=== PATIENT | male | born 1960 | race Hispanic/Latino ===

== ENCOUNTER 2016-07-04 18:37 | Observation (INO) | payer OTHER ==
[~2016-07-04] VITALS: Ht 165.1 cm; Wt 83.9 kg
[~2016-07-04 18:37] MED LIST: CHILDREN'S ASPI81 M1 PO; FIORICET 50-301 EACH PO; MONTELUKAST SOD10 M1 PO; NASAL DECONGEST30 M1 NASB; TYLENOL EXTRA500 M2 PO; VITAMIN B12 1541 TAB PO; VITAMIN D1000 IU PO
--- NOTE | 2016-07-04 19:28 | ED CARDIAC/CP/PALPITATIONS ---
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 HX BRADYCARDIA, PACEMAKER. PT TO [facility] FOR EKG. Triage Nurses Notes Reviewed? 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 Patient does take an aspirin every day 81 mg which he took. Denies any fever chills back pain abdominal pain leg swelling hemoptysis cough States that prior to arrival his symptoms have improved however he still complaining of pain Patient does state that last week he had a similar episode which he presented to his game author Dr. Aguero 2 days later with unremarkable acute findings. Has not had a symptom until today Denies any smoking history or illicit drug use history (FLORESITA CHIU,KATIE) Reconcile Medications Aspirin (Children's Aspirin) 81 MG TAB.CHEW 1 TAB PO DAILY HEART/BLOOD ( Reported) Meclizine HCl 25 MG TABLET 1 TAB PO TID PRN DIZZY (Reported) Tamsulosin HCl 0.4 MG CAP.ER.24H 1 CAP PO DAILY PROSTATE (Reported) (LUZ MARINA BERGER,COURTNEY) Past History Travel History Traveled to [place] past 21 day No Medical History Any Pertinent Medical History? see below for history Cardiovascular: bradycardia PACEMAKER History of MRSA: No History of VRE: No History of CDIFF: No Surgical History Surgical History: non-contributory, pacemaker Psychosocial History Who do you live with Spouse Services at Home None What is your primary language Mongolian Tobacco Use: Never used Family History Hx Contributory? No (KATIE STRANGE) Review of Systems Review of Systems Constitutional: Reports: see HPI. EENTM: Reports: no symptoms. Respiratory: Reports: see HPI, short of breath. Cardiovascular: Reports: see HPI, chest pain. GI: Reports: no symptoms. Genitourinary: Reports: no symptoms. Musculoskeletal: Reports: no symptoms. Skin: Reports: no symptoms. Neurological/Psychological: Reports: no symptoms. Hematologic/Endocrine: Reports: no symptoms. Immunologic/Allergic: Reports: no symptoms. All Other Systems: Reviewed and Negative (KATIE STRANGE) Physical Exam Physical Exam General Appearance: no apparent distress, comfortable Cardiovascular: regular rate/rhythm Comments: HEENT: Normal EENT exam, extraocular motion intact, no nystagmus. Pupils equally round and reactive to light and accommodation. Nose is atraumatic. External auditory canal and Tympanic membranes clear. Pharynx normal. No swelling or edema. Neck: Supple, no lymphadenopathy, normal range of motion without pain or tenderness Back: Nontender, no CVA tenderness. Cardiovascular: Regular rate and rhythms no murmurs rubs or gallops, normal JVP Respiratory: Chest nontender. No respiratory distress.breath sounds clear to auscultation bilaterally Abdomen: Soft, nontender nondistended, no appreciable organomegaly. Normal bowel sounds. No ascites Extremity: No edema, no calf tenderness to palpation, normal and equal pulses. Neuro: Alert oriented x3, motor sensory normal, Skin: No appreciable rash on exposed skin, skin is warm and dry. Psych: Mood and affect is normal, memory and judgment is normal. Core Measures ACS in differential dx? No Severe Sepsis Present: No Septic Shock Present: No (KATIE STRANGE) Progress Differential Diagnosis: AMI, aortic dissection, atrial fibrillation, cholecystitis, CHF/pulm edema, costochondritis, hyperkalemia, hypovolemia, hyperthyroid, hyperventilation, intracranial hemorrhage, musculoskeletal pain, myocarditis, pancreatitis, pericarditis, pneumonia, pneumothorax, PSVT, pulmonary embolism, PUD/GERD, PVCs/PACs, respiratory failure, rib fracture, sepsis, unstable angina, V-fib/V-Tach, WPW syndrome Plan of Care: Orders Procedure Date/time Status Heart Healthy Diet 07/05 B Active TROPONIN LEVEL 07/05 0700 Active EKG 07/05 0700 Active TROPONIN LEVEL 07/05 0100 Active EKG 07/05 0100 Active RAPID VIRAL INFLUENZA A 07/04 225 Active ECHOCARDIOGRAM 07/04 2238 Active Pathway - chart 07/04 2236 Active Patient Data 07/04 2236 Active Code Status 07/04 2236 Active Patient Data 07/[address] in observation 07/04 2211 Active Telemetry/Concessionist 07/04 1941 Active THYROID STIMULATING HORMONE 07/04 194 Complete TROPONIN LEVEL 07/04 194 Complete MAGNESIUM 07/04 194 Complete FREE T4 07/04 194 Complete COMPREHENSIVE METABOLIC PANEL 07/04 194 Complete CBC WITHOUT DIFFERENTIAL 07/04 1941 Complete EKG 07/04 1850 Active House Staff 07/04 UNK Active VTE Mechanical Prophylaxis 07/04 UNK Active Vital Signs 07/04 UNK Active Telemetry/Concessionist 07/04 UNK Active Intake & Output 07/04 UNK Active Current Medications Sig/Leo Start time Last Medication Dose Stop Time Status Admin Aspirin 81 MG DAILY 07/05 1000 AC (Aspirin) Tamsulosin HCl 0.4 MG DAILY 07/05 1000 AC (Flomax) Heparin Sodium 5,000 UNIT Q8 07/05 0600 AC (Porcine) Acetaminophen 650 MG Q6P PRN 07/04 2245 AC (Tylenol) Acetaminophen/ 1 TAB Q6P PRN 07/04 2245 AC Hydrocodone Bitart (Vicodin) Meclizine HCl 25 MG TIDPRN PRN 07/04 2245 AC (Antivert) Oxycodone HCl 10 MG Q6P PRN 07/04 2245 AC (Roxicodone) Laboratory Tests 07/04/16 1950: Anion Gap 10, Estimated GFR > 60, BUN/Creatinine Ratio 23.3, Glucose 102 H, Calcium 9.1, Magnesium 1.9, Total Bilirubin 0.5, AST 20, ALT 32, Alkaline Phosphatase 53, Troponin I < 0.01, Total Protein 7.1, Albumin 4.2, Globulin 2.9, Albumin/Globulin Ratio 1.4, TSH 1.920, Free T4 1.02, CBC w Diff NO MAN DIFF REQ, RBC 5.38, MCV 82.1, MCH 27.6, RDW 14.0, MPV 10.8 H, Gran % 57.4, Lymphocytes % 32.0, Monocytes % 7.5, Eosinophils % 2.4, Basophils % 0.7, Absolute Granulocytes 5.1, Absolute Lymphocytes 2.8, Absolute Monocytes 0.7 H, Absolute Eosinophils 0.2, Absolute Basophils 0.1, PUBS MCHC 33.7 Microbiology 07/04 2316 NASOPHARYN: Influenza Virus A & B Rapid Smear - RECD Patient on this examination had concerns of angina in which he was administered a therapeutic dose of aspirin and was given nitroglycerin. After nitroglycerin was administered patient had complete resolution of his chest pain. Discussed patient with DR. RAZA who admit patient to telemetry Dr. Linda was paged for admission (FLORESITA CHIU,KATIE) D/W DR LINDA, WILL PLACE ON TELEMETRY FOR OBSERVATION. (LUZ MARINA BERGER,COURTNEY) Diagnostic Imaging: Viewed by Me: Radiology Read. CXR Impression: SEE COMMENTS Initial ED EKG: ATRIAL PACED RHYTHM NOTED AT 63 BPM Comments: PATIENT: DON BOYD PRESENT AGE: 55 PATIENT ACCOUNT NO: [id number] : 61 LOCATION: [facility] ORDERING PHYSICIAN: KATIE CHIU SERVICE DATE: 07/04/16 EXAM TYPE: RAD - XRY-CHEST XRAY, PA AND LATERAL EXAMINATION: XR CHEST CLINICAL INFORMATION: Chest pain. COMPARISON: Chest radiography 08/18/2014. TECHNIQUE: Two views of the chest were obtained. FINDINGS: Left pectoral cardiac device with leads terminating in the right atrium and right ventricle. The lungs are well expanded. There is mild bronchovascular prominence. No lobar consolidation, pleural effusion, pulmonary edema, or pneumothorax. No mediastinal widening. No acute osseous abnormalities. Abdominal surgical clips. IMPRESSION: Mild bronchovascular prominence; please correlate for clinical symptoms of small airways inflammation. No evidence of lobar pneumonia or overt pulmonary edema. (KATIE STRANGE) Departure Departure Disposition: STILL A PATIENT Condition: Guarded Clinical Impression Primary Impression: Angina effort Referrals: WILDA BERGER,GUZMAN Chatterjee (PCP/Family) Departure Forms: Customer Survey General Discharge Information (KATIE STRANGE) Observation Note Spoke With: CAILIN BERGER,IRENE Solorzano Physician Advisor Notified: OLE LOPEZ DO Place Patient In: Non-ED OBS Care Area Rationale for Observation: My rational for observation is as follows [TELE MONITOR, SERIAL EKG, SERIAL TROPONIN, CARDIOLOGY EVALUATION, ECHOCARDIOGRAM, ASPIRIN, NITRATES]. PA/BUSINESS APPLICATIONS SPECIALIST Co-Sign Statement Statement: ED Attending supervision documentation- [X] I saw and evaluated the patient. I have also reviewed all the pertinent lab results and diagnostic results. I agree with the findings and the plan of care as documented in the PA's/BUSINESS APPLICATIONS SPECIALIST's documentation. [X] I have reviewed the ED Record and agree with the PA's/BUSINESS APPLICATIONS SPECIALIST's documentation. [] Additions or exceptions (if any) to the PAs/BUSINESS APPLICATIONS SPECIALIST's note and plan are summarized below: [] (LUZ MARINA BERGER,COURTNEY) Critical Care Note Critical Care Note Critical Care Time: 30-74 min (KATIE STRANGE)
[2016-07-04] MEDS ORDERED: TAMSULOSIN HCL0.4 M1 PO (19:31)
[2016-07-04] MEDS ORDERED: MECLIZINE HCL25 MG PO (19:31)
[2016-07-04] MEDS ORDERED: GABAPENTIN100 M2 PO (19:32)
[2016-07-04 19:58] LABS: BASOPHIL % 0.7 % (0.0-2.0); EOSINOPHIL % 2.4 % (0-5); HEMATOCRIT 44.2 % (42-52); MEAN CORPUSCULAR HGB 27.6 PG (27.0-31.0); MEAN CORPUSCULAR HGB CONC 33.7 G/DL (33.0-37.0); MEAN CORPUSCULAR VOLUME 82.1 FL (80.0-94.0); MEAN PLATELET VOLUME 10.8 FL (7.4-10.4); PLATELET COUNT 218 /CUMM (130-400); RED BLOOD CELL CT 5.38 /CUMM (4.70-6.10); WHITE BLOOD CELL COUNT 8.8 /CUMM (4.8-10.8)
[2016-07-04 20:01] LABS: ABSOLUTE BASOPHIL COUNT 0.1 /CUMM (0.0-0.2); ABSOLUTE EOSINOPHIL COUNT 0.2 /CUMM (0.0-0.7); ABSOLUTE GRANULOCYTE CT 5.1 /CUMM (1.4-6.5); ABSOLUTE LYMPH COUNT 2.8 /CUMM (1.2-3.4); ABSOLUTE MONOCYTE COUNT 0.7 /CUMM (0.10-0.60); GRANULOCYTE % 57.4 % (42.2-75.2)
--- NOTE | 2016-07-04 20:19 | RADIOLOGY REPORT ---
EXAMINATION: XR CHEST CLINICAL INFORMATION: Chest pain. COMPARISON: Chest radiography 08/18/2014. TECHNIQUE: Two views of the chest were obtained. FINDINGS: Left pectoral cardiac device with leads terminating in the right atrium and right ventricle. The lungs are well expanded. There is mild bronchovascular prominence. No lobar consolidation, pleural effusion, pulmonary edema, or pneumothorax. No mediastinal widening. No acute osseous abnormalities. Abdominal surgical clips. IMPRESSION: Mild bronchovascular prominence; please correlate for clinical symptoms of small airways inflammation. No evidence of lobar pneumonia or overt pulmonary edema.
--- NOTE | 2016-07-04 22:28 | History & Physical ---
JAYDEN BERGER,JESSE 07/04/16 2227: General Information and HPI MD Statement: I have seen and personally examined DON BOYD and documented this H&P. The patient is a 55 year old M who presented with a patient stated chief complaint of [chest pain]. Source of Information: patient, family, old records Exam Limitations: no limitations History of Present Illness: There is a 55-year-old gentleman with a past medical history significant for bradycardia status post pacemaker placement in 2013, dizziness, BPH that presented to the emergency room today with a chief complaint of substernal chest pain. Patient states that about a week ago he had substernal chest pain and had a few bouts of vomiting subsequently after which the chest pain alleviated. 2 days ago he was seen and evaluated by Dr. Womack in his office for his symptoms which were then deemed to be noncardiac. This evening he was climbing up the stairs to go to his bedroom where he noticed chest heaviness, substernal, nonradiating, 8 out of 10 pressure-like pain. He took an aspirin and presented to the emergency room. His chest pain in the emergency room did alleviate with nitroglycerin. Also merits the 1 bout of vomiting today. At present she is chest pain-free, denies any shortness of breath, nausea, vomiting, diarrhea, fevers, chills, recent illnesses or sick contacts. States that he was scheduled to have a stress test with Dr. Womack on July 22. Allergies/Medications Allergies: Coded Allergies: NO KNOWN ALLERGIES (03/25/14) Past History Travel History Traveled to [place] past 21 day No Medical History Cardiovascular: bradycardia PACEMAKER History of MRSA: No History of VRE: No History of CDIFF: No Surgical History Surgical History: non-contributory, pacemaker Past Family/Social History Psychosocial History Where do you live? Home Who Do You Live With? spouse, child Services at Home: None Primary Language: Algerian, Mohawk Smoking Status: Never Smoked ETOH Use: occasional use Illicit Drug Use: denies illicit drug use Functional Ability ADLs Independent: dressing, eating, toileting, bathing. IADLs Independent: shopping, housework, finances, food prep, telephone, transportation , medication admin. Review of Systems Review of Systems Constitutional: Reports: see HPI. Exam & Diagnostic Data Last 24 Hrs of Vital Signs/I&O Vital Signs Date Time Temp Pulse Resp B/P Pulse O2 O2 Flow FiO2 Ox Delivery Rate 07/04 2226 96.4 70 18 107/78 95 Room Air 07/04 2137 96.7 63 18 109/70 96 Room Air 07/04 1936 100 Room Air 07/04 1843 96.9 77 18 124/82 97 Room Air Physical Exam General Appearance Alert, Oriented X3, Cooperative HEENT Atraumatic, PERRLA, EOMI Neck Supple, No JVD Lymphatic Axillary nl, Cervical nl Cardiovascular Regular Rate, Normal S1, Normal S2, No Murmurs Lungs Clear to Auscultation, Normal Air Movement Abdomen Normal Bowel Sounds, Soft, No Tenderness, No Hepatospenomegaly Neurological Normal Gait, Normal Speech, Strength at 5/5 X4 Ext, Normal Tone, Sensation Intact, Cranial Nerves 3-12 NL, Reflexes 2+ Extremities No Clubbing, No Cyanosis, No Edema Last 24 Hrs of Labs/Reji: Laboratory Tests 07/04/16 1950: Anion Gap 10, Estimated GFR > 60, BUN/Creatinine Ratio 23.3, Glucose 102 H, Calcium 9.1, Magnesium 1.9, Total Bilirubin 0.5, AST 20, ALT 32, Alkaline Phosphatase 53, Troponin I < 0.01, Total Protein 7.1, Albumin 4.2, Globulin 2.9, Albumin/Globulin Ratio 1.4, TSH 1.920, Free T4 1.02, CBC w Diff NO MAN DIFF REQ, RBC 5.38, MCV 82.1, MCH 27.6, RDW 14.0, MPV 10.8 H, Gran % 57.4, Lymphocytes % 32.0, Monocytes % 7.5, Eosinophils % 2.4, Basophils % 0.7, Absolute Granulocytes 5.1, Absolute Lymphocytes 2.8, Absolute Monocytes 0.7 H, Absolute Eosinophils 0.2, Absolute Basophils 0.1, PUBS MCHC 33.7 Diagnostic Data EKG Results Rate 63, FL 184, QRS 92, QTC 377 Atrial paced No significant changes since previous tracing CXR Results IMPRESSION: Mild bronchovascular prominence; please correlate for clinical symptoms of small airways inflammation. No evidence of lobar pneumonia or overt pulmonary edema. Assessment/Plan Assessment: Assessment- 1. Angina on exertion, possibly cardiac 2. One episode of vomiting 3. History of dizziness 4. History of BPH Plan- Admit to telemetry Vitals per protocol Strict I's and O's Trend troponin and EKG Daily aspirin, nitroglycerin when necessary if blood pressure permits Echocardiogram Cardiology evaluation Continue all other home meds Heart healthy diet DVT prophylaxis with subcutaneous heparin Pain pathway Full code As Ranked By This Provider Problem List: 1. Angina effort 2. Lightheaded 3. Atypical chest pain 4. Dizziness 5. Vertigo 6. Headache 7. Chest pain Core Measures/Miscellaneous Acute Coronary Syndrome ACS Diagnosis: No Cerebrovascular Accident CVA/TIA Diagnosis: No Congestive Heart Failure CHF Diagnosis: No Venous Thromboembolism VTE Risk Factors: Age > 40 VTE Prophylaxis Ordered Inpt: Pharm- Heparin No Mech VTE prophylaxis d/t: No contraindications No VTE Pharm Prophylaxis d/t: No contraindications VTE Diagnosis: No VTE Type: NONE VTE Confirmed by (Test): NONE Severe Sepsis Severe Sepsis Present: No Septic Shock Septic Shock Present: No Miscellaneous Documentation Attending Case Discussed With: Dr. Linda Primary Care Physician: GUZMAN ASTUDILLO MD Patient sees these Specialists DRS. WOMACK AND JOSHUA Level of Patient Care: Telemetry Resident Review Statement Resident Statement: examined this patient, discussed with pr intern CAILIN BERGERTUSCALOOSA 07/05/16 1044: General Information and HPI Allergies/Medications Home Med list Aspirin (Children's Aspirin) 81 MG TAB.CHEW 1 TAB PO DAILY HEART/BLOOD ( Reported) Meclizine HCl 25 MG TABLET 1 TAB PO TID PRN DIZZY (Reported) Tamsulosin HCl 0.4 MG CAP.ER.24H 1 CAP PO DAILY PROSTATE (Reported) Attending MD Review Statement Attending Statement Attending MD Statement: examined this patient, discuss w/resident/PA/SALESPERSON SURGICAL APPLIANCES, agreed w/resident/PA/SALESPERSON SURGICAL APPLIANCES, discussed with family, discussed with nursing Attending Assessment/Plan: This is a 55-year-old male with a pacemaker for bradycardia. He has had cardiac catheterization with normal coronary arteries in 2009. He has had normal stress tests in the past. Yesterday he had an episode of dizziness and nausea and brief chest pain and was brought to the emergency department. He has been watched overnight. He has no further chest pain. He has no EKG changes. His enzymes are negative 3. The patient is stable for discharge at this time. He already has a stress test scheduled for about 2 weeks time. He will report any further symptoms to his regular physicians. No changes were made to his minimal medical regimen.
[2016-07-05] VITALS: BP 116/68
[2016-07-05 07:51] VITALS: BP 110/70
--- NOTE | 2016-07-05 08:52 | PN- Housestaff ---
Subjective Follow-up For: Chest pain Tele-Events Since Last Visit: Sinus Rhythm, first-degree heart block MO interval 0.2 to heart rate 60s Subjective: Seen and examined patient offers no complaints Review of Systems Constitutional: Denies: chills, diaphoresis, fever, malaise, weakness, unexplained weight loss. Cardiovascular: Denies: chest pain, edema, orthopena, palpitations, peripheral edema, syncope. Respiratory: Denies: cough, hemoptysis, orthopnea, short of breath, sputum production, stridor, wheezing. Gastrointestinal: Denies: abdominal pain, bloating, constipation, diarrhea, distention, bowel incontinence, melena, nausea, bloody stool, changes in stool, vomiting, steatorrhea. Objective Last 24 Hrs of Vital Signs/I&O Vital Signs Date Time Temp Pulse Resp B/P Pulse O2 O2 Flow FiO2 Ox Delivery Rate 07/05 0751 97.6 63 18 110/70 96 Room Air 07/05 0024 95 Room Air 07/05 0000 98.1 68 18 116/68 95 Room Air 07/04 2227 96.4 70 18 107/78 95 Room Air 07/04 2137 96.7 63 18 109/70 96 Room Air 07/04 1936 100 Room Air 07/04 1843 96.9 77 18 124/82 97 Room Air Intake & Output 07/05 1600 07/05 0800 07/05 0000 Intake Total 480 Output Total Balance 480 Intake, Oral 480 Patient 185 lb 185 lb Weight Physical Exam General Appearance: Alert, Oriented X3, Cooperative, No Acute Distress Cardiovascular: Regular Rate, Normal S1, Normal S2 Lungs: Clear to Auscultation, Normal Air Movement Extremities: No Edema Current Medications: Current Medications Sig/Leo Start time Last Medication Dose Route Stop Time Status Admin Acetaminophen 650 MG Q6P PRN 07/04 2244 AC PO Acetaminophen/ 1 TAB Q6P PRN 07/04 2244 AC Hydrocodone Bitart PO Aspirin 81 MG DAILY 07/05 1000 AC PO Aspirin 0 .STK-MED ONE 07/04 1950 DC PO Aspirin 81 MG ONCE ONE 07/04 1944 DC 07/04 PO 07/04 Aspirin 81 MG ONCE ONE 07/04 1944 DC 07/04 PO 07/04 Aspirin 81 MG ONCE ONE 07/04 1944 DC 07/04 PO 07/04 Heparin Sodium 5,000 UNIT Q8 07/05 0600 AC 07/05 (Porcine) SD 0627 Meclizine HCl 25 MG TIDPRN PRN 07/04 2244 AC PO Nitroglycerin 0.4 MG ONCE ONE 07/04 1944 DC 07/04 SL 07/04 Oxycodone HCl 10 MG Q6P PRN 07/04 224 AC PO Sodium Chloride 1,000 ML BOLUS ONE 07/04 1944 DC 07/04 IV 07/04 Tamsulosin HCl 0.4 MG DAILY 07/05 1000 AC PO Last 24 Hrs of Lab/Reji Results Last 24 Hrs of Labs/Mics: Laboratory Tests 07/05/16 0705: Troponin I < 0.01 07/05/16 0140: Troponin I < 0.01 07/04/16 1950: Anion Gap 10, Estimated GFR > 60, BUN/Creatinine Ratio 23.3, Glucose 102 H, Calcium 9.1, Magnesium 1.9, Total Bilirubin 0.5, AST 20, ALT 32, Alkaline Phosphatase 53, Troponin I < 0.01, Total Protein 7.1, Albumin 4.2, Globulin 2.9, Albumin/Globulin Ratio 1.4, TSH 1.920, Free T4 1.02, CBC w Diff NO MAN DIFF REQ, RBC 5.38, MCV 82.1, MCH 27.6, RDW 14.0, MPV 10.8 H, Gran % 57.4, Lymphocytes % 32.0, Monocytes % 7.5, Eosinophils % 2.4, Basophils % 0.7, Absolute Granulocytes 5.1, Absolute Lymphocytes 2.8, Absolute Monocytes 0.7 H, Absolute Eosinophils 0.2, Absolute Basophils 0.1, PUBS MCHC 33.7 Microbiology 07/047 NASOPHARYN: Influenza Virus A & B Rapid Smear - COMP Assessment/Plan Assessment: 55-year-old gentleman with a past medical history significant for bradycardia status post pacemaker placement in 2013, dizziness, BPH admitted to the hospital for evaluation of chest pain. His pain is now completely resolved. Troponin negative 3, no new EKG changes noted. Problem list: Atypical chest pain BPH Assessment: Was recently evaluated by Dr. Aguero in his office and is scheduled to have a stress test on July 22. Spoke Dr[address] Linda who stated that the patient was stable for discharge to home today Continue aspirin, meclizine and Flomax Heart healthy diet DVT prophylaxis with subcutaneous heparin Pain pathway Full code Problem List: 1. Chest pain Pain Ratin Pain Location: Not Applicable Pain Goal: Pain 4 or less Pain Plan: Current regimen Tomorrow's Labs & Rationales: None required
[2016-07-05 10:04] VITALS: BP 110/70
--- NOTE | 2016-07-05 10:35 | Patient Discharge Instructions ---
Discharge Instructions General Discharge Information You were seen/treated for: chest pain Special Instructions: Follow-up with your primary care physician within one week Please follow-up with your solution strategist for outpatient stress test Acute Coronary Syndrome Inclusion Criteria At DC or during hospital stay patient has or had the following: ACS DIAGNOSIS No Discharge Core Measures Meds if any: Prescribed or Continued at Discharge Meds if any: NOT Prescribed or Continued at Discharge Congestive Heart Failure Inclusion Criteria At DC or during hospital stay patient has or had the following: CHF DIAGNOSIS No Discharge Core Measures Meds if any: Prescribed or Continued at Discharge Meds if any: NOT Prescribed or Continued at Discharge Cerebrovascular accident Inclusion Criteria At DC or during hospital stay patient has or had the following: CVA/TIA Diagnosis No Discharge Core Measures Meds if any: Prescribed or Continued at Discharge Meds if any: NOT Prescribed or Continued at Discharge Venous thromboembolism Inclusion Criteria VTE Diagnosis No VTE Type NONE VTE Confirmed by (Test) NONE Discharge Core Measures - Per Current guidelines, there needs to be overlap - treatment for the first 5 days of Warfarin therapy. - If discharged on Warfarin prior to 5 days of - overlap therapy, the patient will need to be - assessed for post discharge needs including - *Post discharge parental anticoagulation - *Warfarin and/or parental anticoagulation education - *Follow up date to check INR post discharge At least 5 days overlap therapy as Inpatient No Meds if any: Prescribed or Continued at Discharge Note: Overlap Therapy is Warfarin and Anticoagulant Meds if any: NOT Prescribed or Continued at Discharge
== END 2016-07-05 11:55 ==
LOC: ENRESERVTM → ENRESERVDT → ERH 18:37 → ERHI 22:12 → ENPENDDIS 22:12 → 1NO 23:49
PROVIDERS: Physician Assistant; ADMIT Internal Medicine
DX: R07.9 Chest pain, unspecified (principal); Z95.0 Presence of cardiac pacemaker; N40.0 Benign prostatic hyperplasia without lower urinary tract symptoms; R42 Dizziness and giddiness
CPT/HCPCS: 2000; 6020; 87804; 87804-59; 93005; 93010; 96360; 96372; G0378; J1644; J3490

== ENCOUNTER 2016-11-12 16:32 | Emergency (ER) | payer OTHER ==
[~2016-11-12] VITALS: Ht 165.1 cm; Wt 81.6 kg
[~2016-11-12 16:32] MED LIST changes: +GABAPENTIN100 M2 PO; +MECLIZINE HCL25 MG PO; +TAMSULOSIN HCL0.4 M1 PO
[2016-11-12] MEDS ORDERED: OXYBUTYNIN CHLO10 M1 PO (17:46)
[2016-11-12] MEDS ORDERED: TIZANIDINE HCL2 M1 (17:48)
[2016-11-12 18:14] VITALS: BP 122/78
--- NOTE | 2016-11-12 18:22 | ED HAND/WRIST INJURY COMPLAINT ---
History of Present Illness General Chief Complaint: Hand or Wrist Injury Stated Complaint: PT SLICE HIS LT THUMB Source: patient, family Exam Limitations: no limitations Vital Signs & Intake/Output Vital Signs & Intake/Output Vital Signs Date Time Temp Pulse Resp B/P B/P Pulse O2 O2 Flow FiO2 Mean Ox Delivery Rate 11/12 1814 97.6 87 17 122/78 100 Room Air 11/12 1638 97.5 90 16 120/88 98 Room Air Allergies Coded Allergies: NO KNOWN ALLERGIES (03/25/14) Reconcile Medications Aspirin (Children's Aspirin) 81 MG TAB.CHEW 1 TAB PO DAILY HEART/BLOOD ( Reported) Cephalexin (Keflex) 500 MG CAPSULE 1 CAP PO TID skin wound Meclizine HCl 25 MG TABLET 1 TAB PO TID PRN DIZZY (Reported) Oxybutynin Chloride (Oxybutynin Chloride ER) 10 MG TAB.ER.24 1 TAB PO DAILY (Reported) Tizanidine HCl (Unknown Strength) TABLET (Unknown Dose) UNKNOWN (Reported) Triage Note: PT STATES HE WAS TRIMMING A PIECE OF MEAT AND THE KNIFE SLIPPED AND CUT HIS LEFT THUMB. BLEEDING CONTROLED. Triage Nurses Notes Reviewed? yes Occurred: just prior to arrival Duration: hour(s): Timing: single episode today Injury Environment: home Severity: moderate Pain/Injury Location: Left: 1st finger. Context: laceration Method of Injury: laceration HPI: 56-year-old male presents emergency department complaining of laceration to left thumb. Patient states that while cutting meat and slipped causing him to cut his left thumb. He states this happened immediately prior to his arrival here. He is unsure of his last tetanus shot. He denies numbness, tingling, joint swelling. (JUAN R GALLEGOS PA-C) Past History Travel History Traveled to [place] past 21 day No Medical History Any Pertinent Medical History? see below for history Neurological: NONE EENT: NONE Cardiovascular: bradycardia PACEMAKER Respiratory: NONE Gastrointestinal: NONE Hepatic: NONE Renal: NONE Musculoskeletal: NONE Psychiatric: NONE History of MRSA: No History of VRE: No History of CDIFF: No Influenza Vaccine: 04/16/16 Tetanus Vaccine: 11/12/16 Surgical History Surgical History: non-contributory, pacemaker Psychosocial History Who do you live with Spouse Services at Home None What is your primary language Greenlandic Tobacco Use: Never used ETOH Use: denies use Illicit Drug Use: denies illicit drug use Family History Hx Contributory? No (JUAN R GALLEGOS PA-C) Review of Systems Review of Systems Constitutional: Reports: no symptoms. EENTM: Reports: no symptoms. Respiratory: Reports: no symptoms. Cardiovascular: Reports: no symptoms. GI: Reports: no symptoms. Genitourinary: Reports: no symptoms. Musculoskeletal: Reports: no symptoms. Skin: Reports: see HPI. Neurological/Psychological: Reports: no symptoms. Hematologic/Endocrine: Reports: no symptoms. Immunologic/Allergic: Reports: no symptoms. All Other Systems: Reviewed and Negative (JUAN R GALLEGOS PA-C) Physical Exam Physical Exam General Appearance: well developed/nourished, no apparent distress, alert, awake Head: atraumatic, normal appearance Eyes: Bilateral: normal appearance. Ears, Nose, Throat: hearing grossly normal Neck: normal inspection, supple, full range of motion Cardiovascular/Respiratory: no respiratory distress Back: normal range of motion Hand Left: normal range of motion, 1st finger (2 cm laceration palmar aspect) Hand Right: normal inspection, normal range of motion Neurologic/Tendon: normal sensation, normal motor functions, normal tendon functions Skin: 2cm flap laceration to palmar aspect of left thumb without nail involvment (JUAN R GALLEGOS PA-C) Progress Differential Diagnosis: abscess, cellulitis, contusion, felon, fracture, sprain Plan of Care: Tetanus status updated today. Wound closed with 8 sutures and skin glue. Patient tolerated procedure well. Wound was extensively irrigated prior to closure, no foreign body was detected. Patient was put on prophylactic course of antibiotics. He was instructed on signs of infection. He will follow-up with his primary care doctor or return to the emergency department in 7-10 days for suture removal. He will return sooner with any signs of infections or any worsening or concerning symptoms. The patient is in agreement with the plan of care. (JUAN R GALLEGOS PA-C) Departure Departure Disposition: HOME OR SELF CARE Condition: Stable Clinical Impression Primary Impression: Laceration Referrals: WILDA BERGER,GUZMAN Chatterjee (PCP/Family) Additional Instructions: Keep dressing over the wound open to the air. You may wash with soap and water however no direct scrubbing over wound. Watch for signs of infection including redness, swelling, cloudy drainage, red streaking up the arm. Follow up here or with her primary care doctor in 7-10 days for removal of your stitches. You may take Tylenol or Motrin as prescribed as needed for ear pain. Departure Forms: Customer Survey General Discharge Information Prescriptions: Current Visit Scripts Cephalexin (Keflex) 1 CAP PO TID #21 CAP (JUAN R GALLEGOS PA-C) PA/LIBRARY MEDIA SPECIALIST Co-Sign Statement Statement: ED Attending supervision documentation- [] I saw and evaluated the patient. I have also reviewed all the pertinent lab results and diagnostic results. I agree with the findings and the plan of care as documented in the PA's/LIBRARY MEDIA SPECIALIST's documentation. [X] I have reviewed the ED Record and agree with the PA's/LIBRARY MEDIA SPECIALIST's documentation. [] Additions or exceptions (if any) to the PAs/LIBRARY MEDIA SPECIALIST's note and plan are summarized below: [] (ANA BERGER,JOYCE Gasca) Procedures Laceration/Wound Repair Laceration/Wound Repair: Wound Location: right thumb Wound's Depth, Shape: flap, irregular Wound Length (cm): 2 Wound Explored: irrigated extensively Irrigated w/ Saline (ccs): 500 Betadine Prep? Yes Anesthesia: 1% lidocaine Volume Anesthetic (ccs): 7 Wound Repaired With: sutures, wound adhesive Suture Size/Type: 4:0 Number of Sutures: 8 Layer Closure? No Sterile Dressing Applied: Yes Tetanus Status: up to date Progress: Patient tolerated procedure well (JUAN R GALLEGOS PA-C)
[2016-11-12] MEDS ORDERED: KEFLEX500 M1 PO (18:24)
== END 2016-11-12 18:30 ==
LOC: ERH 16:32
DX: S61.011A Laceration without foreign body of right thumb without damage to nail, initial encounter (principal); W26.0XXA Contact with knife, initial encounter; Y93.G1 Activity, food preparation and clean up; Y92.9 Unspecified place or not applicable
CPT/HCPCS: 90471; 90714